=== PATIENT | female | born 1950 | race African-American/Black ===

== ENCOUNTER 2022-05-02 11:08 | Emergency (ER) | payer MEDICARE, MEDICAID ==
[~2022-05-02] VITALS: Ht 162.6 cm; Wt 63.5 kg
[2022-05-02 11:26] VITALS: BP 148/86
[2022-05-02] MEDS ORDERED: insulin (11:26)
[2022-05-02 13:32] LABS: BASOPHILS % 1.2 % (0.0-2.0); EOSINOPHILS % 3.7 % (0.0-5.0); HEMATOCRIT. 31.2 % (36.0-48.0); LYMPHOCYTES % 40.8 % (20.0-50.0); MEAN CORPUSCULAR HEMOGLOBIN 27.1 pg (28.0-32.0); MEAN CORPUSCULAR VOLUME 84.5 fL (81.0-99.0); MEAN PLATELET VOLUME 8.1 fl (7.4-10.4); MONOCYTES % 8.2 % (2.0-8.0); NEUTROPHILS % 46.1 % (40.0-76.0); PLATELET 310 x1000/uL (130-400); RED CELL DISTRIBUTION WIDTH 13.8 % (11.6-14.6)
[2022-05-02 13:38] LABS: CHLORIDE 103 mEq/L (98-107)
[2022-05-02 13:41] LABS: INR 0.9; PROTHROMBIN TIME 9.9 sec (9.6-11.0)
[2022-05-02] MEDS ORDERED: TOPUD PO (14:38)
== END 2022-05-02 16:34 | disposition home or self-care (01) ==
LOC: ER 11:33
DX: R10.84 Generalized abdominal pain (principal); R53.1 Weakness; E11.65 Type 2 diabetes mellitus with hyperglycemia; I10 Essential (primary) hypertension; I45.10 Unspecified right bundle-branch block; R79.89 Other specified abnormal findings of blood chemistry; D64.9 Anemia, unspecified; Z20.822 Contact with and (suspected) exposure to COVID-19
CPT/HCPCS: 36415; 71045; 74176; 80053; 83605; 84145; 84484; 85025; 85610; 87040; 87426; 87804; 93005; 99285; C9803

== ENCOUNTER 2022-07-09 10:40 | Inpatient (IN) | payer MEDICARE, MEDICAID ==
[~2022-07-09] VITALS: Ht 154.9 cm; Wt 59.1 kg
[~2022-07-09 10:40] MED LIST: TOPUD PO; insulin
[2022-07-09] MEDS ORDERED: SODIUM CHLORIDE 0.9% 1,000 ML IV ONE (13:45)
[2022-07-09] MEDS ORDERED: MORPHINE SULFATE 4 MG/ML CPJ (NOT FOR IM USE) IV ONE (13:45)
[2022-07-09] MEDS ORDERED: PIPERACILLIN/TAZ 3.375G PREMIX 50 ML IV ONE (14:00)
[2022-07-09 15:13] LABS: HEMATOCRIT. 34.1 % (36.0-48.0); HEMOGLOBIN. 10.9 g/dL (12.0-16.0); MEAN CORPUSCULAR HEMOGLOBIN 27.1 pg (28.0-32.0); MEAN CORPUSCULAR VOLUME 84.9 fL (81.0-99.0); MEAN PLATELET VOLUME 8.3 fl (7.4-10.4); PLATELET 459 x1000/uL (130-400); RED BLOOD CELL COUNT 4.01 mill/uL (4.2-5.4); RED CELL DISTRIBUTION WIDTH 15.6 % (11.6-14.6)
[2022-07-09 15:20] LABS: PROTHROMBIN TIME 10.7 sec (9.6-11.0)
[2022-07-09 15:22] LABS: CHLORIDE 102 mEq/L (98-107)
[2022-07-09 15:26] LABS: CLARITY URINE CLEAR (CLEAR); COLOR URINE YELLOW (YELLOW); KETONES URINE 3+ (NEGATIVE); LEUKOCYTE ESTERASE URINE NEGATIVE (NEGATIVE); NITRITE URINE NEGATIVE (NEGATIVE); OCCULT BLOOD URINE 1+ (NEGATIVE); PH URINE 6.5 (4.5-8.0); PROTEIN URINE 3+ (NEGATIVE)
[2022-07-09 15:30] LABS: ETHANOL BLOOD < 10 mg/dL
[2022-07-09] MEDS ORDERED: SKIN ADHESIVE 0.7 GM EA TOP ONE (15:52)
[2022-07-09] MEDS ORDERED: BUPIVACAINE HCL/PF 0.5% (5MG/ML) 10ML ONE (15:52)
[2022-07-09] MEDS ORDERED: SUCCINYLCHOLINE CHLORIDE 200MG/10ML IV ONE ×3 (16:10→17:46)
[2022-07-09] MEDS ORDERED: ETOMIDATE 2MG/ML 10ML VIAL IV ONE (16:10)
[2022-07-09] MEDS ORDERED: ROCURONIUM BROMIDE 10MG/ML VIAL 5ML IV ONE (16:10)
[2022-07-09] MEDS ORDERED: CEFAZOLIN SODIUM 1000MG/VIAL ONE (16:10)
[2022-07-09] MEDS ORDERED: ONDANSETRON HCL 4MG/2ML INJ ONE (16:11)
[2022-07-09] MEDS ORDERED: DEXAMETHASONE 4MG/ML 1ML VIAL ONE (16:11)
[2022-07-09] MEDS ORDERED: MIDAZOLAM HCL 2 MG/2 ML VIAL ONE (16:12)
[2022-07-09] MEDS ORDERED: CALCIUM CHLORIDE 1GM/10ML SYR IV ONE (16:15)
[2022-07-09 16:22] LABS: PLATELET ESTIMATE INCREASED
[2022-07-09] MEDS ORDERED: FENTANYL CITRATE/PF 50MCG/ML 2ML VIAL IV PRN (16:45)
[2022-07-09] MEDS ORDERED: HYDROMORPHONE HCL/PF 2MG/ML CPJ IV PRN (16:45)
[2022-07-09] MEDS ORDERED: DEXT 5%/0.45% NACL KCL 20MEQ/L 1,000 ML IV SCH (17:15)
[2022-07-09] MEDS ORDERED: ONDANSETRON HCL 4MG/2ML INJ IV PRN (17:15)
[2022-07-09] MEDS ORDERED: FENTANYL CITRATE/PF 50MCG/ML 2ML VIAL ONE ×2 (17:19→18:24)
[2022-07-09] MEDS ORDERED: DEXT 5%/0.45% NACL 1000ML 1,000 ML IV SCH (19:00)
[2022-07-09] MEDS ORDERED: TRAMADOL 50MG TABLET PO PRN (19:00)
[2022-07-09] MEDS ORDERED: ACETAMINOPHEN 650MG SUPP PR PRN (19:00)
[2022-07-09] MEDS ORDERED: HYDRALAZINE 20MG/ML VIAL IV PRN (19:15)
[2022-07-09] MEDS ORDERED: NALOXONE HCL 0.4MG/ML VIAL IV PRN (19:15)
[2022-07-09] MEDS ORDERED: SODIUM BICARBONATE 8.4% 1 MEQ/ML 50ML SYR IV NR (19:15)
[2022-07-09 19:27] LABS: BG BASE EXCESS -8.6 mmol/L (-2.0-2.0); BG CARBOXYHEMOGLOBIN 0.1 % (0.5-1.5); BG DEOXYHEMOGLOBIN 1.1 % (0.0-5.0); BG FRACTION INSPIRED OXYGEN 100; BG METHEMOGLOBIN 0.2 % (0.0-1.5); BG OXYGEN SATURATION 98.9 % (92.0-98.5); BG OXYHEMOGLOBIN 98.6 % (94.0-97.0); BG PCO2 64.8 mmHg (35.0-45.0); BG PH 7.128 (7.350-7.450); BG PO2 216.4 mmHg (75.0-100.0); BG SAMPLE SITE LEFT BRACHIAL; BG VENT MODE MASK - NRB
[2022-07-09] MEDS ORDERED: PIPERACILLIN/TAZ 3.375G PREMIX 50 ML IV NR (20:45)
[2022-07-09] MEDS: SODIUM CHLORIDE 0.9% INJ 3ML FLUSH IVF SCH (22:07)
[2022-07-09] MEDS ORDERED: DEXTROSE 50% WATER 50ML SYRINGE IV PRN (22:15)
[2022-07-09] MEDS: BLOOD SUGAR DIAGNOSTIC STRIP TEST SCH (22:48)
[2022-07-09 22:54] LABS: CHLORIDE 107 mEq/L (98-107)
[2022-07-09] MEDS: INSULIN LISPRO 100 UNITS/ML SUBCUT SCH (22:56)
[2022-07-09 23:49] VITALS: BP 161/82
[2022-07-10] MEDS: MORPHINE SULFATE 2 MG/ML CPJ (NOT FOR IM USE) IV PRN ×3 (03:13→09:27)
[2022-07-10 04:00] VITALS: BP 145/70
[2022-07-10] MEDS: PIPERACILLIN/TAZOBACTAM 3.375 G in DEXTROSE 5% WATER 50 ML IV SCH ×3 (05:45→22:09)
[2022-07-10] MEDS: SODIUM CHLORIDE 0.9% INJ 3ML FLUSH IVF SCH ×3 (05:46→22:09)
[2022-07-10] MEDS: BLOOD SUGAR DIAGNOSTIC STRIP TEST SCH ×4 (06:46→21:00)
[2022-07-10] MEDS: INSULIN LISPRO 100 UNITS/ML SUBCUT SCH ×4 (06:56→21:00)
[2022-07-10 07:25] LABS: HEMATOCRIT. 27.8 % (36.0-48.0); HEMOGLOBIN. 8.8 g/dL (12.0-16.0); MEAN CORPUSCULAR HEMOGLOBIN 26.5 pg (28.0-32.0); MEAN CORPUSCULAR VOLUME 83.6 fL (81.0-99.0); MEAN PLATELET VOLUME 7.7 fl (7.4-10.4); PLATELET 398 x1000/uL (130-400); RED BLOOD CELL COUNT 3.32 mill/uL (4.2-5.4); RED CELL DISTRIBUTION WIDTH 15.2 % (11.6-14.6)
[2022-07-10 08:00] VITALS: BP 133/61
[2022-07-10 08:55] LABS: CHLORIDE 104 mEq/L (98-107)
[2022-07-10 09:06] LABS: HDL CHOLESTEROL 60 mg/dL (40-59); LDL CHOLESTEROL 124 mg/dL (5-100)
[2022-07-10] MEDS ORDERED: HYDRALAZINE 10 MG in SODIUM CHLORIDE 0.9% 49.5 ML IV PRN (11:30)
[2022-07-10] MEDS: INSULIN GLARGINE 100 UNITS/ML SUBCUT SCH (11:47)
[2022-07-10 12:00] VITALS: BP 139/69
[2022-07-10] MEDS: HYDROCODONE/ACETAMINOPHEN 5/325MG TABLET PO PRN (14:49)
[2022-07-10 16:00] VITALS: BP 141/69
[2022-07-10 20:00] VITALS: BP 147/65
[2022-07-10] MEDS: PANTOPRAZOLE SODIUM 40 MG/VIAL IV SCH ×2 (21:00→21:51)
[2022-07-10] MEDS: MORPHINE SULFATE 4 MG/ML CPJ (NOT FOR IM USE) IV PRN (21:53)
[2022-07-11] VITALS: BP 140/73
[2022-07-11 00:51] LABS: PLATELET ESTIMATE NORMAL
[2022-07-11] MEDS: HYDROMORPHONE HCL/PF 2MG/ML CPJ IV PRN (02:06)
[2022-07-11 04:00] VITALS: BP 131/65
[2022-07-11] MEDS: PIPERACILLIN/TAZOBACTAM 3.375 G in DEXTROSE 5% WATER 50 ML IV SCH ×3 (06:02→22:04)
[2022-07-11] MEDS: MORPHINE SULFATE 4 MG/ML CPJ (NOT FOR IM USE) IV PRN (06:04)
[2022-07-11] MEDS: SODIUM CHLORIDE 0.9% INJ 3ML FLUSH IVF SCH ×3 (06:15→20:45)
[2022-07-11] MEDS: INSULIN LISPRO 100 UNITS/ML SUBCUT SCH ×4 (07:50→20:55)
[2022-07-11] MEDS: BLOOD SUGAR DIAGNOSTIC STRIP TEST SCH ×4 (07:54→20:55)
[2022-07-11 08:00] VITALS: BP 155/81
[2022-07-11] MEDS: HYDRALAZINE HCL 10MG TABLET PO SCH (09:03)
[2022-07-11] MEDS: ONDANSETRON HCL 4MG/2ML INJ IV PRN ×2 (09:15→23:10)
[2022-07-11] MEDS: INSULIN GLARGINE 100 UNITS/ML SUBCUT SCH (09:42)
[2022-07-11 12:00] VITALS: BP 171/73
[2022-07-11] MEDS: MORPHINE SULFATE 2 MG/ML CPJ (NOT FOR IM USE) IV PRN ×2 (12:46→23:14)
[2022-07-11] MEDS: METOCLOPRAMIDE HCL 10MG/2ML VIAL IV PRN (15:03)
[2022-07-11 16:00] VITALS: BP 145/73
[2022-07-11] MEDS: HYDROCODONE/ACETAMINOPHEN 5/325MG TABLET PO PRN (19:05)
[2022-07-11 20:00] VITALS: BP 157/81
[2022-07-11] MEDS: PANTOPRAZOLE SODIUM 40 MG/VIAL IV SCH (20:45)
[2022-07-12] VITALS: BP 128/70
[2022-07-12 04:00] VITALS: BP 134/77
[2022-07-12] MEDS: METOCLOPRAMIDE HCL 10MG/2ML VIAL IV PRN (04:51)
[2022-07-12] MEDS: SODIUM CHLORIDE 0.9% INJ 3ML FLUSH IVF SCH ×3 (06:00→22:15)
[2022-07-12] MEDS: PIPERACILLIN/TAZOBACTAM 3.375 G in DEXTROSE 5% WATER 50 ML IV SCH ×3 (06:00→22:00)
[2022-07-12] MEDS: BLOOD SUGAR DIAGNOSTIC STRIP TEST SCH ×4 (07:20→21:26)
[2022-07-12] MEDS: INSULIN LISPRO 100 UNITS/ML SUBCUT SCH ×4 (07:50→21:00)
[2022-07-12 08:00] VITALS: BP 165/69
[2022-07-12] MEDS: ONDANSETRON HCL 4MG/2ML INJ IV PRN ×3 (08:21→22:00)
[2022-07-12] MEDS: HYDRALAZINE HCL 10MG TABLET PO SCH (08:23)
[2022-07-12] MEDS ORDERED: DEXT 5%/0.45% NACL 1000ML 1,000 ML IV SCH (10:15)
[2022-07-12] MEDS: METOCLOPRAMIDE HCL 10MG/2ML VIAL IV SCH ×3 (10:27→18:07)
[2022-07-12] MEDS: INSULIN GLARGINE 100 UNITS/ML SUBCUT SCH (11:12)
[2022-07-12] MEDS: HYDROCODONE/ACETAMINOPHEN 5/325MG TABLET PO PRN ×4 (11:45→21:22)
[2022-07-12 12:00] VITALS: BP 178/83
[2022-07-12 12:15] LABS: EOSINOPHILS % 1.3 % (0.0-5.0); HEMOGLOBIN. 9.8 g/dL (12.0-16.0); LYMPHOCYTES % 17.7 % (20.0-50.0); MEAN CORPUSCULAR HEMOGLOBIN 26.6 pg (28.0-32.0); MEAN CORPUSCULAR VOLUME 83.8 fL (81.0-99.0); MEAN PLATELET VOLUME 7.5 fl (7.4-10.4); MONOCYTES % 8.5 % (2.0-8.0); NEUTROPHILS % 71.5 % (40.0-76.0); PLATELET 416 x1000/uL (130-400); RED CELL DISTRIBUTION WIDTH 15.3 % (11.6-14.6)
[2022-07-12 12:38] LABS: CHLORIDE 102 mEq/L (98-107)
[2022-07-12 16:00] VITALS: BP 151/74
[2022-07-12] MEDS ORDERED: POTASSIUM CHLORIDE 20MEQ TABLET SR PO NR (16:30)
[2022-07-12] MEDS ORDERED: DEXT 5%/0.45% NACL KCL 40MEQ/L 1,000 ML IV ONE (16:30)
[2022-07-12] MEDS: HYDROMORPHONE HCL/PF 2MG/ML CPJ IV PRN (19:22)
[2022-07-12 20:00] VITALS: BP 162/68
[2022-07-12] MEDS: PANTOPRAZOLE SODIUM 40 MG/VIAL IV SCH (20:28)
[2022-07-12] MEDS: MORPHINE SULFATE 2 MG/ML CPJ (NOT FOR IM USE) IV PRN (22:00)
[2022-07-13] VITALS: BP 163/76
[2022-07-13] MEDS: METOCLOPRAMIDE HCL 10MG/2ML VIAL IV SCH ×3 (00:17→11:12)
[2022-07-13] MEDS: HYDROCODONE/ACETAMINOPHEN 5/325MG TABLET PO PRN ×2 (00:21→00:23)
[2022-07-13] MEDS: MORPHINE SULFATE 4 MG/ML CPJ (NOT FOR IM USE) IV PRN (02:42)
[2022-07-13] MEDS: PIPERACILLIN/TAZOBACTAM 3.375 G in DEXTROSE 5% WATER 50 ML IV SCH (06:15)
[2022-07-13] MEDS: SODIUM CHLORIDE 0.9% INJ 3ML FLUSH IVF SCH (06:15)
[2022-07-13] MEDS: ONDANSETRON HCL 4MG/2ML INJ IV PRN (06:18)
[2022-07-13] MEDS: MORPHINE SULFATE 2 MG/ML CPJ (NOT FOR IM USE) IV PRN ×2 (06:21→11:01)
[2022-07-13 07:04] LABS: BASOPHILS % 1.2 % (0.0-2.0); EOSINOPHILS % 3.2 % (0.0-5.0); HEMATOCRIT. 26.3 % (36.0-48.0); HEMOGLOBIN. 8.5 g/dL (12.0-16.0); LYMPHOCYTES % 36.1 % (20.0-50.0); MEAN CORPUSCULAR HEMOGLOBIN 27.2 pg (28.0-32.0); MEAN CORPUSCULAR VOLUME 83.9 fL (81.0-99.0); MEAN PLATELET VOLUME 7.3 fl (7.4-10.4); MONOCYTES % 11.3 % (2.0-8.0); NEUTROPHILS % 48.2 % (40.0-76.0); PLATELET 370 x1000/uL (130-400); RED BLOOD CELL COUNT 3.14 mill/uL (4.2-5.4); RED CELL DISTRIBUTION WIDTH 15.2 % (11.6-14.6)
[2022-07-13 07:41] LABS: CHLORIDE 106 mEq/L (98-107)
[2022-07-13] MEDS: INSULIN LISPRO 100 UNITS/ML SUBCUT SCH ×2 (07:50→12:40)
[2022-07-13 08:00] VITALS: BP 146/59
[2022-07-13] MEDS: BLOOD SUGAR DIAGNOSTIC STRIP TEST SCH ×2 (08:03→12:39)
[2022-07-13] MEDS: HYDRALAZINE HCL 10MG TABLET PO SCH (09:28)
[2022-07-13] MEDS: INSULIN GLARGINE 100 UNITS/ML SUBCUT SCH (10:00)
[2022-07-13 12:00] VITALS: BP 164/80
[2022-07-13 12:10] VITALS: BP 134/62
== END 2022-07-13 15:45 | disposition home health service (06) | DRG 234 ==
LOC: ER 12:21 → ORIP 16:48 → EDBEDREQ 18:07 → EDBEDREQTM 18:07 → 6EST 07-10 00:15
PROVIDERS: ADMIT Hospitalist; ATTEND Hospitalist
PROC: 0DTJ4ZZ Resection of Appendix, Percutaneous Endoscopic Approach (ICD-10-PCS; principal; 2022-07-09)
DX: K35.80 Unspecified acute appendicitis (principal); E11.649 Type 2 diabetes mellitus with hypoglycemia without coma; K56.7 Ileus, unspecified; E87.5 Hyperkalemia; I10 Essential (primary) hypertension; Z20.822 Contact with and (suspected) exposure to COVID-19; M19.90 Unspecified osteoarthritis, unspecified site; Z79.899 Other long term (current) drug therapy; E11.65 Type 2 diabetes mellitus with hyperglycemia; R11.2 Nausea with vomiting, unspecified
CPT/HCPCS: 36415; 36600; 74176; 80048; 80053; 80061; 80076; 80320; 81003; 82375; 82805; 82962; 83036; 84484; 85025; 86850; 86900; 87426; 88304; 93005; 93970; 97162; 99285; C9113; C9803; J0330; J0360; J0690; J1100; J1170; J1815; J2250; J2270; J2405; J2543; J2765; J3010; J3490; J7030; J7060; G0480

== ENCOUNTER 2022-08-11 09:07 | Emergency (ER) | payer MEDICARE, MEDICAID ==
[~2022-08-11] VITALS: Ht 160 cm; Wt 53.0 kg
[2022-08-11 09:11] VITALS: BP 123/70
[2022-08-11] MEDS ORDERED: KETOROLAC 60MG/2ML VIAL IM STA (11:15)
[2022-08-11 13:40] LABS: CLARITY URINE CLEAR (CLEAR); COLOR URINE YELLOW (YELLOW); KETONES URINE NEGATIVE (NEGATIVE); LEUKOCYTE ESTERASE URINE 2+ (NEGATIVE); NITRITE URINE NEGATIVE (NEGATIVE); OCCULT BLOOD URINE NEGATIVE (NEGATIVE); PROTEIN URINE TRACE (NEGATIVE); SPECIFIC GRAVITY URINE 1.016 (1.005-1.030); UROBILINOGEN URINE 0.2 E.U./dL (0.2-1.0)
[2022-08-11] MEDS ORDERED: KETOROLAC 60MG/2ML VIAL IM SCH (13:45)
[2022-08-11] MEDS ORDERED: CEPH500T MT (14:10)
[2022-08-11] MEDS ORDERED: IBUP-2028 MT (14:25)
== END 2022-08-11 15:18 | disposition home or self-care (01) ==
LOC: ER 09:07
DX: N39.0 Urinary tract infection, site not specified (principal); E11.9 Type 2 diabetes mellitus without complications; I10 Essential (primary) hypertension
CPT/HCPCS: 81003; 82962; 96372; 99283; J1885